=== PATIENT | female | born 1955 | race Caucasian/White ===

== ENCOUNTER → 2023-05-06 | Outpatient (CLI) | payer MEDICARE | END | disposition home or self-care (01) | LOC: SHCH 13:29 | PROVIDERS: ATTEND Internal Medicine Cardiovascular Disease | DX: I73.9 Peripheral vascular disease, unspecified (principal); M79.669 Pain in unspecified lower leg | CPT/HCPCS: 93925 ==

== ENCOUNTER → 2023-09-25 | Outpatient (CLI) | payer MEDICARE | END | disposition home or self-care (01) | LOC: RAH 10:30 | PROVIDERS: ATTEND Internal Medicine | DX: M47.815 Spondylosis without myelopathy or radiculopathy, thoracolumbar region (principal); I70.0 Atherosclerosis of aorta; M41.54 Other secondary scoliosis, thoracic region; M54.50 Low back pain, unspecified | CPT/HCPCS: 72070; 72100 ==

== ENCOUNTER → 2024-07-02 | Outpatient (CLI) | payer MEDICARE ==
--- NOTE | 2024-07-05 01:00 | HMCSR ---
APPROVED REPORT EXAM: Two-dimensional and M-mode echocardiogram with Doppler and color Doppler. INDICATION ICD: R01.1 Cardiac murmur, unspecified 2D Dimensions RVDd3.6 cmLVEF(%)55.0 (>50%)LVED Vol(simp.)88.0 mL IVSd0.9 (0.7-1.1cm)FS(%)28 %LVES Vol(simp.)36.0 mL LVDd4.3 (3.8-5.6cm)Ao Root(2D)3.0 (2.0-3.7cm)LVEF(%, simp.)60 % PWd0.9 (0.7-1.1cm)LVOT diam1.9 (1.8-2.4cm)LA ESV INDEX (BP)30.47 mL/m2 LVDs3.1 (2.5-4.0cm)IVC diam1.9 cm Aortic Valve AoV Vmax1.6 m/Lex Peak GR10.8 mmHgLVOT Vmax1.4 m/s AoV VTI0.3 mAo Mean GR5.5 mmHgLVOT VTI0.29 m PASCUAL (VMAX)2.3 cm2AVA (VTI) 2.3 cm2 Mitral Valve MV E Vmax69.9 cm/sDECEL Ndfx259 ms MV A Vmax98.5 cm/sP 1/2 T64 ms E/A ratio0.7MVA (PHT)3.5 cm2 MR Max PG92 mmHg TDI E/E' Yxpiji20.6E/E' Lateral7.8 Pulmonary Valve PV Vmax1.3 m/sPV VTI0.27 mPV Mean GR4 mmHg PV Peak GR6.5 mmHg Tricuspid Valve TR Vmax2.5 m/sRAP (EST) 8 qoZmMMCI92.4 mmHg TR Peak GR25.4 mmHg Left Ventricle The left ventricle is normal in size. No regional wall motion abnormalities noted. Mild concentric le ft ventricular hypertrophy. Left ventricular systolic function is normal, estimated LVEF is 55 to 60% . Grade 1 diastolic dysfunction Right Ventricle The right ventricle is normal size. The right ventricular systolic function is normal. Atria The left atrium size is normal. The right atrium size is normal. Aortic Valve Aortic valve is trileaflet. The leaflets are mildly thickened and calcified. Trace aortic regurgitati on. There is no aortic valvular stenosis. Mitral Valve Mild mitral annular calcification is noted. The leaflets are mildly thickened and calcified. Trace mi tral regurgitation. There is no mitral valve stenosis. Tricuspid Valve The tricuspid valve is normal in structure and function. Mild tricuspid regurgitation. RVSP is 25 mmH g. Pulmonic Valve Pulmonic valve is not well visualized. Great Vessels The aortic root is normal in size. IVC is dilated and collapses >50% with inspiration. Pericardium No pericardial effusion. Conclusion The cardiac chambers are normal in size. Mild concentric left ventricular hypertrophy. No regional wall motion abnormalities noted. Left ventricular systolic function is normal, estimated LVEF is 55 to 60%. Grade 1 diastolic dysfunction Trace aortic regurgitation. Trace mitral regurgitation. Mild tricuspid regurgitation. PASP is 33 mmHg. No pericardial effusion.
== END | disposition home or self-care (01) ==
LOC: SHCH 09:55
PROVIDERS: ATTEND Internal Medicine Cardiovascular Disease
DX: I08.3 Combined rheumatic disorders of mitral, aortic and tricuspid valves (principal); I50.89 Other heart failure; R01.1 Cardiac murmur, unspecified
CPT/HCPCS: 93306

== ENCOUNTER → 2024-07-10 | Outpatient (CLI) | payer MEDICARE ==
--- NOTE | 2024-07-10 15:43 | HMCIMG ---
US THYROID/NECK REASON: NONTOXIC GOITER COMPARISON: None TECHNIQUE: Routine thyroid sonogram was performed. There are no prior studies for comparison. FINDINGS: There is homogeneous appearing thyroid parenchyma. Right lobe is 1.5 x 1.6 x 4.9 cm, left 1.3 x 1.6 x 4.2 cm. There is a well-circumscribed hypoechoic nodule upper pole right lobe measuring 3 mm. There are 2 nodules on the left, one measuring 4 x 4 mm, the second is 4 x 5 mm. These are both also well-circumscribed, sonolucent but solid. There are no other focal nodules. These nodules all have thyroid T score of 4, moderately suspicious, however recommendations are that it is not necessary to do sonographic follow-up if less than 1 cm. IMPRESSION: 1. 3 subcentimeter nodules, one on the right, 2 on the left, largest is 5 mm. 2. Otherwise normal exam.
== END | disposition home or self-care (01) ==
LOC: RAH 12:57
PROVIDERS: ATTEND Internal Medicine
DX: E04.2 Nontoxic multinodular goiter (principal)
CPT/HCPCS: 76536

== ENCOUNTER → 2025-05-08 | Outpatient (CLI) | payer MEDICARE ==
--- NOTE | 2025-05-08 09:20 | HMCIMG ---
CLINICAL INDICATION: Age-related osteoporosis without current pathological fracture COMPARISON: None for comparison TECHNIQUE: Bone densitometry is performed of the lumbar spine and left hip. FINDINGS: Total BMD of lumbar spine is 0.686 g/cm2 with a T-score of -3.3 and Z-score is -1.2. Total BMD of left hip is 0.604 g/cm2 with a T-score of -2.8 and Z-score is -1.3. FRAX SCORE: The 10 year fracture risk for a major osteoporotic fracture and hip fracture not obtained because treated for osteoporosis IMPRESSION: 1. Osteoporosis lumbar spine and left hip 2. Follow up recommended for 13 months World Health Organization criteria for BMD interpretation classify patients as Normal (T-score at or above -1.0), Osteopenic (T-score between -1.0 and -2.5), or Osteoporotic (T-score at or below -2.5). FRAX SCORE: A. All treatment decisions require clinical judgment and consideration of individual patient factors, including patient preferences, comorbidities, previous drug use, risk factors not captured in the FRAX model (e.g., frailty, falls, vitamin D deficiency, increased bone turnover, interval significant decline in bone density) and possible [id number]-estimation of fracture risk by FRAX. B. In addition, the NOF Guide recommends that FDA-approved medical therapies be considered in postmenopausal women and men age greater than or equal to 50 years with a: i. Hip or vertebral (clinical or morphometric) fracture. ii. T-score of less than or equal to -2.5 at the spine or hip. iii. Ten-year fracture probability by FRAX of greater than or equal to 3% for hip fracture of greater than or equal to 20% for major osteoporotic fracture.
== END | disposition home or self-care (01) ==
LOC: RAH 08:00
PROVIDERS: ATTEND Internal Medicine
DX: M81.0 Age-related osteoporosis without current pathological fracture (principal)
CPT/HCPCS: 77080